=== PATIENT | female | born 2000 | race Caucasian/White ===

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

== ENCOUNTER → 2022-09-23 | Outpatient (CLI) | payer BC, MEDICARE ==
[2022-09-28 22:06] LABS: ALKALINE PHOSPHATASE - OTHER 0 % (0-18)
== END | disposition home or self-care (01) ==
LOC: LABMN 13:24
PROVIDERS: ATTEND Emergency Medicine
DX: Z00.00 Encounter for general adult medical examination without abnormal findings (principal)
CPT/HCPCS: 84080

== ENCOUNTER → 2024-03-23 | Outpatient (CLI) | payer OTHER ==
[2024-03-26 21:06] LABS: QUANTIFERON+, Nil Value 0.05 IU/mL; QUANTIFERON+,Mitogen Value >10.00 IU/mL; QUANTIFERON+,TB1 Antigen Value 0.15 IU/mL; QUANTIFERON+,TB2 Antigen Value 0.05 IU/mL; QUANTIFERON, TB GOLD PLUS Negative (Negative)
== END | disposition home or self-care (01) ==
LOC: LABMN 08:07
PROVIDERS: ATTEND Emergency Medicine
DX: Z02.79 Encounter for issue of other medical certificate (principal)
CPT/HCPCS: 86480